=== PATIENT | male | born 1990 | race Caucasian/White ===

== ENCOUNTER 2017-01-24 22:43 | Emergency (ER) | payer OTHER ==
[~2017-01-24 22:43] MED LIST: AZIT100S PO; HYDR473S4 PO; POTA20TA74 PO; ZOLP5TAB2 PO
== END 2017-01-24 23:49 | disposition left against medical advice (07) ==
LOC: ER 22:45
DX: Z53.21 Procedure and treatment not carried out due to patient leaving prior to being seen by health care provider (principal)